=== PATIENT | male | born 1995 | race Two or more races ===

== ENCOUNTER 2019-12-23 13:37 | Emergency (ER) | payer MEDICAID ==
[~2019-12-23] VITALS: Ht 180.3 cm; Wt 95.3 kg
[2019-12-23 14:15] VITALS: BP 139/80
== END 2019-12-23 14:38 | disposition home or self-care (01) ==
LOC: ER 13:37
DX: J40 Bronchitis, not specified as acute or chronic (principal); R05 Cough
CPT/HCPCS: 71045

== ENCOUNTER 2019-12-29 15:58 | Inpatient (IN) | payer MEDICAID ==
[~2019-12-29] VITALS: Ht 177.8 cm; Wt 103.4 kg
[2019-12-29 17:46] LABS: Basophils # (auto) 0 10 ^3/uL (0-0.2); Basophils % (auto) 0.8 % (0.0-2.0); Eosinophils # (auto) 0 10 ^3/uL (0-0.8); Eosinophils % (auto) 0.5 % (0.0-7.0); Hematocrit 49.2 % (41.0-53.0); Hemoglobin 16.9 g/dL (13.5-17.5); Lymphocytes # (auto) 1.9 10 ^3/uL (0.4-5.4); Lymphocytes % (auto) 35.4 % (10.0-50.0); Mean Corpuscular Hemoglobin 28.4 pg (28.0-32.0); Mean Corpuscular Hgb Conc. 34.4 g/dL (32.0-36.0); Mean Corpuscular Volume 82.7 fL (80.0-100.0); Monocytes # (auto) 0.4 10 ^3/uL (0-1.3); Neutrophils # (auto) 2.9 10 ^3/uL (1.6-8.6); Neutrophils % (auto) 55.3 % (37.0-80.0); Nucleated Red Blood Cells % 0.3 %; Platelet Count (auto) 268 10^3/uL (140-450); Red Blood Cells 5.95 10^6/uL (4.5-5.90); Red Cell Distribution Width 13.6 % (11.8-14.3); White Blood Cell 5.3 10^3/uL (4.4-10.8)
[2019-12-29 18:01] LABS: Albumin 4.1 g/dL (3.4-5.0); Calcium 8.5 mg/dL (8.5-10.1); Potassium 3.7 mmol/L (3.5-5.1)
[2019-12-29 18:09] LABS: Bilirubin, Total 0.7 mg/dL (0.2-1.0); CRP High Sensitivity 2.38 mg/dL (< 0.3); Total Protein 8.5 g/dL (6.4-8.2)
[2019-12-29] MEDS ORDERED: ZINC SULFATE 220mg CAP or TAB PO ONE (18:30)
[2019-12-29] MEDS ORDERED: ASCORBIC ACID 500 MG TAB PO ONE (18:30)
[2019-12-29] MEDS ORDERED: DOXYCYCLINE 100MG/250ML 250 ML IV ONE (18:30)
[2019-12-29] MEDS ORDERED: ERGOCALCIFEROL 50,000 UNIT(1.25MG) CAP PO SCH (18:30)
[2019-12-29] MEDS ORDERED: SODIUM CHLORIDE 0.9% 1,000 ML IV SCH (19:02)
[2019-12-29] MEDS: DOXYCYCLINE 100 MG TAB/CAP PO SCH ×3 (19:07→22:05)
[2019-12-29] MEDS ORDERED: MORPHINE SULF INJ 2 MG/ML SYRINGE 1ML IV PRN (19:15)
[2019-12-29] MEDS ORDERED: DEXTROSE (50%) 50ML SYRG IV PRN (19:15)
[2019-12-29] MEDS ORDERED: TEMAZEPAM 15 MG CAP PO PRN (19:15)
[2019-12-29] MEDS ORDERED: PROMETHAZINE HCL 25 MG/ML 1ML IV PRN (19:15)
[2019-12-29] MEDS ORDERED: ACETAMINOPHEN 500 MG TAB PO PRN (19:15)
[2019-12-29] MEDS ORDERED: LACTULOSE 20Gm/30ML SOLN PO PRN (19:15)
[2019-12-29] MEDS ORDERED: methylPREDNISolone SOD SUCC 40 MG/ML VL IV ONE (19:15)
[2019-12-29] MEDS ORDERED: NITROGLYCERIN 0.4 MG SL TAB SL PRN (19:15)
[2019-12-29] MEDS: ACCU-CHEK COMFORT CURVE STRIP VI SCH ×2 (20:00→23:53)
[2019-12-29] MEDS: ALBUTEROL SULF HFA 90MCG INH 200DOSE IN SCH (22:00)
[2019-12-29] MEDS: methylPREDNISolone SOD SUCC 40 MG/ML VL IV SCH (22:05)
[2019-12-29 22:55] VITALS: BP 134/82
[2019-12-29] MEDS ORDERED: ALBUTEROL SULFATE 90 MCG MDI IN ONE (23:36)
[2019-12-30] MEDS: ALBUTEROL SULF HFA 90MCG INH 200DOSE IN SCH ×3 (00:01→14:11)
[2019-12-30 00:08] VITALS: BP 124/80
[2019-12-30 05:07] VITALS: BP 132/71
[2019-12-30] MEDS: ACCU-CHEK COMFORT CURVE STRIP VI SCH ×2 (05:07→08:00)
[2019-12-30 09:00] VITALS: BP 133/75
[2019-12-30] MEDS ORDERED: cefTRIAXone 1GM/50ML D5W 50 ML IV SCH (09:00)
[2019-12-30] MEDS: methylPREDNISolone SOD SUCC 40 MG/ML VL IV SCH (09:05)
[2019-12-30] MEDS: DOXYCYCLINE 100 MG TAB/CAP PO SCH ×2 (09:06)
[2019-12-30] MEDS ORDERED: ENOXAPARIN SOD 40 MG/0.4 ML SYRINGE SC SCH (10:00)
[2019-12-30] MEDS ORDERED: CHOLECALCIFEROL (VITD3) 1,000UNIT=25mCg TAB PO SCH (10:00)
[2019-12-30] MEDS ORDERED: ASCORBIC ACID 1,000 MG TAB PO SCH (10:00)
[2019-12-30] MEDS ORDERED: ZINC SULFATE 220mg CAP or TAB PO SCH (10:00)
[2019-12-30 10:04] LABS: Basophils # (auto) 0 10 ^3/uL (0-0.2); Eosinophils # (auto) 0 10 ^3/uL (0-0.8); Lymphocytes # (auto) 0.9 10 ^3/uL (0.4-5.4); Monocytes # (auto) 0.1 10 ^3/uL (0-1.3); Neutrophils # (auto) 1.9 10 ^3/uL (1.6-8.6); Nucleated Red Blood Cells % 0.5 %; White Blood Cell 2.9 10^3/uL (4.4-10.8)
[2019-12-30 10:05] LABS: Basophils % (auto) 0.4 % (0.0-2.0); Hematocrit 49.1 % (41.0-53.0); Hemoglobin 17.1 g/dL (13.5-17.5); Lymphocytes % (auto) 30.8 % (10.0-50.0); Mean Corpuscular Hemoglobin 28.6 pg (28.0-32.0); Mean Corpuscular Hgb Conc. 34.8 g/dL (32.0-36.0); Mean Corpuscular Volume 82.4 fL (80.0-100.0); Monocytes % (auto) 4.4 % (0.0-12.0); Neutrophils % (auto) 64.4 % (37.0-80.0); Platelet Count (auto) 333 10^3/uL (140-450); Red Blood Cells 5.96 10^6/uL (4.5-5.90); Red Cell Distribution Width 13.6 % (11.8-14.3)
[2019-12-30 10:21] LABS: Calcium 8.9 mg/dL (8.5-10.1)
[2019-12-30 10:24] LABS: BUN/Creatinine Ratio 11.1; Bilirubin, Total 0.9 mg/dL (0.2-1.0); Total Protein 8.8 g/dL (6.4-8.2)
[2019-12-30 13:00] VITALS: BP 129/94
[2019-12-30] MEDS ORDERED: DOX100T PO (15:35)
[2019-12-30] MEDS ORDERED: CHOL20007 PO (15:35)
[2019-12-30] MEDS ORDERED: MULT-228 PO (15:35)
[2019-12-30] MEDS ORDERED: ASCO10003 PO (15:35)
[2019-12-30] MEDS ORDERED: ALBUAER3 IN (15:35)
[2019-12-30 15:42] VITALS: BP 129/94
== END 2019-12-30 17:50 | disposition home or self-care (01) | DRG 137 ==
LOC: ER 15:58 → TELE 15:59 → TELE-EAST 23:22
PROVIDERS: ADMIT Internal Medicine; ATTEND Internal Medicine
DX: U07.1 COVID-19 (principal); J12.89 Other viral pneumonia; E66.9 Obesity, unspecified; Z68.32 Body mass index [BMI] 32.0-32.9, adult; Z90.49 Acquired absence of other specified parts of digestive tract
CPT/HCPCS: 36415; 71045; 80053; 82728; 82962; 83036; 83605; 83615; 83735; 85025; 85379; 86141; 87040; 87081; 87804; 87880; 94640; 96361; 96374; 96376; G0378; J0696